=== PATIENT | female | born 1935 | race Caucasian/White ===

== ENCOUNTER → 2017-09-14 | Outpatient (CLI) | payer OTHER ==
[~2017-09-14] MED LIST: ASPIRIN81 M2; AVELOX 400 MG400 MG; DIABETA 5MG TABL5 MG; FUROSEMIDE 20 M20 MG; LISINOPRIL20 MG PO; LISINOPRIL5 MG PO; MIRALAX255 GM PO; NEURONTIN800 MG; OMEGA-31000 M1 PO; PHENERGAN50 MG RECTAL; POTASSIUM20; PROPRANOLOL 8080 MG; STOOL SOFTENER1 EAC2; ULTRAM 50MG TAB50 MG; ULTRAM 50MG TAB50 MG PO; ZOFRAN ODT4 MG PO
== END ==
LOC: M.CT 09-01 08:20
DX: N26.1 Atrophy of kidney (terminal) (principal); I71.4 Abdominal aortic aneurysm, without rupture; R26.9 Unspecified abnormalities of gait and mobility; M54.5 Low back pain; R25.1 Tremor, unspecified; Z98.890 Other specified postprocedural states

== ENCOUNTER → 2017-10-31 | Outpatient (CLI) | payer OTHER ==
[2017-10-31 08:51] LABS: ABSOLUTE EOSINOPHILS 0.1 thou/uL (0.0-0.7); ABSOLUTE LYMPHOCYTES 1.7 thou/uL (0.8-5.3); ABSOLUTE MONOCYTES 0.5 thou/uL (0.0-1.2); ABSOLUTE NEUTROPHILS 5.2 thou/uL (1.6-8.1); BASOPHILS 0.6 %; EOSINOPHILS 1.7 %; HEMATOCRIT 45.4 % (37.0-47.0); HEMOGLOBIN 14.8 gm/dL (12.0-15.0); MCH 28.3 pg (26.0-34.0); MCHC 32.6 g/dL (28.0-37.0); MCV 86.8 fL (80.0-100.0); MONOCYTES 6.4 %; MPV 7.7 fl. (7.2-11.1); NUCLEATED RBCS 0 /100WBC; PLATELET COUNT* 204 thou/uL (150-400); POLYS 69.3 %; RBC 5.23 mil/uL (4.20-5.00); RDW-CV 14.5 % (10.5-14.5); WBC 7.5 thou/uL (4.0-11.0)
[2017-10-31 09:07] LABS: ALBUMIN 3.4 g/dL (3.4-5.0); CALCIUM 9.1 mg/dL (8.5-10.1); CREATININE 1.1 mg/dL (0.6-1.3); POTASSIUM 3.9 mmol/L (3.5-5.1); TOTAL BILIRUBIN 0.3 mg/dL (<0.1-1.0); TOTAL PROTEIN 7.5 g/dL (6.4-8.2)
[2017-10-31 10:19] LABS: ESR (SEDRATE) 10 mm/hr (0-30)
[2017-11-01 02:07] LABS: IgA 404 mg/dL (64-422); IgG 1015 mg/dL (700-1600); IgM 78 mg/dL (26-217)
[2017-11-02 11:13] LABS: ANA INTERPRETATION Negative (Negative)
== END ==
LOC: M.LAB 08:29
PROVIDERS: Psychiatry & Neurology Neuromuscular Medicine
DX: R25.1 Tremor, unspecified (principal); R26.9 Unspecified abnormalities of gait and mobility; Z98.890 Other specified postprocedural states

== ENCOUNTER → 2018-10-11 | Outpatient (CLI) | payer OTHER | LOC: M.RAD 09-25 12:45 | DX: N64.59 Other signs and symptoms in breast (principal) ==

== ENCOUNTER → 2019-12-31 | Outpatient (CLI) | payer OTHER | LOC: M.RAD 09:56 | PROVIDERS: ATTEND Family Medicine | DX: Z12.31 Encounter for screening mammogram for malignant neoplasm of breast (principal) ==